=== PATIENT | female | born 1990 | race Caucasian/White ===

== ENCOUNTER 2016-03-27 20:27 | Emergency (ER) | payer OTHER ==
[~2016-03-27] VITALS: Ht 157.5 cm; Wt 55.3 kg
[2016-03-27 20:30] VITALS: BP 105/49
[2016-03-27 22:24] LABS: Urine Bilirubin Negative (Negative); Urine Color Yellow (Yellow); Urine Glucose Normal (Normal); Urine Ketone Negative (Negative); Urine Mucus FEW (None Seen); Urine Nitrite Negative (Negative); Urine RBC 2 /hpf (0 - 4); Urine Squamous Epithelial Cell FEW /hpf (<5); Urine Urobilinogen Normal (Negative)
[2016-03-27 22:26] LABS: Urine Blood 2+ /uL (Negative)
[2016-03-27 23:09] LABS: Basophils # (auto) 0.1 uL; Basophils % (auto) 0.7 % (0.0-2.0); Eosinophils # (auto) 0.1 uL; Hematocrit 36.9 % (36.0-46.0); Lymphocytes # (auto) 1.7 uL; Lymphocytes % (auto) 21.7 % (10.0-50.0); Mean Corpuscular Hemoglobin 30.1 pg (28.0-32.0); Mean Corpuscular Hgb Conc. 32.6 g/dL (32.0-36.0); Mean Corpuscular Volume 92.4 fL (80.0-100.0); Mean Platelet Volume 7.9 fL (7.4-10.4); Monocytes # (auto) 0.7 uL; Monocytes % (auto) 8.8 % (0.0-12.0); Neutrophils # (auto) 5.4 uL; Neutrophils % (auto) 67.8 % (37.0-80.0); Platelet Count (auto) 290 10^3/uL (140-450)
[2016-03-27 23:29] LABS: Albumin 3.8 g/dL (3.4-5.0); BUN/Creatinine Ratio 18.8; Calcium 8.4 mg/dL (8.5-10.1); Potassium 3.5 mmol/L (3.5-5.1)
[2016-03-27 23:43] LABS: Bilirubin, Total 0.3 mg/dL (0.2-1.0)
== END 2016-03-28 01:30 | disposition left against medical advice (07) ==
LOC: ER 20:31
DX: O46.91 Antepartum hemorrhage, unspecified, first trimester (principal); Z3A.01 Less than 8 weeks gestation of pregnancy; Z53.21 Procedure and treatment not carried out due to patient leaving prior to being seen by health care provider
CPT/HCPCS: 36415; 80053; 81001; 84702; 85025; 85049; 86850; 86900; 86901